=== PATIENT | female | born 1975 | race Caucasian/White ===

== ENCOUNTER → 2023-09-27 | Outpatient (CLI) | payer OTHER ==
--- NOTE | 2023-09-30 15:21 | Diagnostic Imaging Report ---
INDICATION: Routine screening. COMPARISON: 12/26/2020. TECHNIQUE: 2D and 3D bilateral screening mammography was performed with CAD. FINDINGS: Scattered fibroglandular densities are identified bilaterally. A circumscribed nodule in the inner right breast at posterior depth is stable. No new mass or malignant-appearing microcalcifications are seen. The axillae are unremarkable. IMPRESSION: No mammographic features suspicious for malignancy are identified. ACR BI-RADS Category 2: Benign findings. Result letter will be mailed to the patient. Note: At least 10% of breast cancer is not imaged by mammography. Dictated by: Dictated on workstation # [id number]
== END ==
LOC: RAD 09:45
PROVIDERS: ATTEND Nurse Practitioner Family
DX: Z12.31 Encounter for screening mammogram for malignant neoplasm of breast (principal); Z51.81 Encounter for therapeutic drug level monitoring; Z13.220 Encounter for screening for lipoid disorders
CPT/HCPCS: 77063; 77067